=== PATIENT | female | born 1945 | race Caucasian/White ===

== ENCOUNTER 2016-06-24 02:08 | Emergency (ER) | payer MEDICARE, BC ==
--- NOTE | 2016-06-26 13:47 | ER ---
DATE SEEN: 06/24/2016 TIME SEEN: The patient was seen at 0237 hours. HISTORY OF PRESENT ILLNESS: This , nonsmoking, overweight woman with diabetes, atrial fibrillation, congestive heart failure, cardiomegaly, CABG, four vessel bypass, obesity, malignant hypertension, and restless legs syndrome, depression and anticoagulation for atrial fibrillation, presents 3 days post extraction #3 and #5 teeth, on 06/21/2016. She became worried this evening because she could not get the sites of dental extraction to stop bleeding. She had put gauze in the area, but she forgot to place the gauze over the posterior #3 tooth extraction site and the bleeding persisted. Before I could see the patient, nurses placed a gauze in each of these areas, had her clamp down, and by the time I saw her, the bleeding had stopped. These sites demonstrate the proud flesh associated with the tooth extraction. The patient is taking pain medicine. OBJECTIVE: VITAL SIGNS: Blood pressure 153/84, heart rate 69, respirations 18, oxygen saturation 99% on room air, temperature is 35.8 degrees centigrade. GENERAL: She has mild ecchymosis in the right side of her face from transudation of blood within the tissue layers of the right buccal area. There is minimal induration and swelling of the right buccal area. She is an overweight, pleasant woman, who has a low- pitched voice, has this large roll of gauze over tooth #3 and tooth #5. Has a trace of blood staining other teeth in her right side of her mouth. The extraction sites are no longer bleeding. The gauze was removed, no further bleeding noted. There is a halitosis in her mouth. NECK: No cervical adenopathy. No bruits in the neck, but she has a soft systolic 1 to 2, left upper sternal border and left middle sternal border that radiates to the carotids, and is audible in the carotids. Quiet, soft systolic murmur of aortic stenosis. No heaves noted. LUNGS: Clear to auscultation without rales, rhonchi, or wheezes. ABDOMEN: No hepatosplenomegaly. ASSESSMENT: Bleeding tooth extraction sites, stopped with compression and gauze. The patient's bleeding is stabilized. Continue with her Coumadin. Continue with compression in the mouth using the gauze to diminish the bleeding. Follow up with the doctor as needed. Otherwise keep her appointment with the dental surgeon who removed her teeth. No antibiotics given to the patient. /[id number] SANDY/ERNST STEIN
== END 2016-06-24 02:58 | disposition home or self-care (01) ==
LOC: FB.ED 02:08
CPT/HCPCS: 99282

== ENCOUNTER 2016-11-21 09:30 | Emergency (ER) | payer MEDICARE, BC ==
[~2016-11-21 09:30] MED LIST: Ketorolac 30 MG/ML SDV IM ONE
[2016-11-21] MEDS ORDERED: Acetaminophen 500 MG Tab PO ONE (09:31)
--- NOTE | 2016-11-21 09:39 | EDM.PDOC ---
ED HPI GENERAL MEDICAL PROBLEM - General Chief Complaint: Back Pain or Injury Stated Complaint: FALL Time Seen by Provider: 11/21/16 09:30 Source of Information: Reports: Patient, EMS History Limitations: Reports: No Limitations - History of Present Illness INITIAL COMMENTS - FREE TEXT/NARRATIVE: 71 yo female bent over and got dizzy and fell injuring her R side of her jaw and her tailbone. Transport via EMS. Vitals stable en route. No LOC. No self tx. 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 (see below) (none) - Related Data Allergies Allergy/AdvReac Type Severity Reaction Status Date / Time amoxicillin Allergy Hives Verified 11/21/16 09:43 heparin Allergy Cardiac Verified 11/21/16 09:43 Arrest vancomycin Allergy Hives Verified 11/21/16 09:43 TAPE Allergy Rash Uncoded 11/21/16 09:43 Home Meds: Home Meds Calcium Carbonate 600 mg PO BID 09/30/14 [History] Cholecalciferol (Vitamin D3) [Vitamin D3] 1 tab PO DAILY 09/30/14 [History] Furosemide [Furosemide] 40 mg PO DAILY 09/30/14 [History] Gluc Cr/Chondro Cr A/Vit C/Mn [Glucosamine 1,500 Complex Cp] 1 cap PO BID [History] Metoprolol Succinate [Toprol Xl] 100 mg PO BID 09/30/14 [History] Primidone [Primidone] 50 mg PO BID 09/30/14 [History] Warfarin [Coumadin] 5 mg PO SUTUWETHSA 09/30/14 [History] atorvaSTATin [Lipitor] 40 mg PO BEDTIME 09/30/14 [History] buPROPion HCl [Wellbutrin SR] 150 mg PO DAILY 09/30/14 [History] Aspirin [Halfprin] 81 mg PO DAILY 12/18/14 [History] Glimepiride [Amaryl] 0.5 tab PO BID 12/18/14 [History] Nitroglycerin [Nitrostat] 0.4 mg SL ASDIRECTED 12/18/14 [History] Lisinopril [Zestril] 20 mg PO BID 01/21/16 [History] Melatonin 2 tab PO BEDTIME 01/21/16 [History] amLODIPine [Norvasc] 10 mg PO BEDTIME 01/21/16 [History] hydrALAZINE [Apresoline] 10 mg PO TID 01/21/16 [History] Acetaminophen/HYDROcodone [[place] 325-5 MG] 1 tab PO Q4H PRN #14 tab 11/21/16 [Rx ] Albuterol [Ventolin HFA] 2 puff INH Q4H PRN 11/21/16 [History] Fluticasone/Vilanterol [Breo Ellipta 200-25 Mcg INH] 1 inh INH DAILY 11/21/16 [ History] Insulin Detemir [Levemir Flextouch] 30 units SQ BID 11/21/16 [History] PARoxetine [Paxil] 20 mg PO BEDTIME 11/21/16 [History] Potassium Chloride 10 meq PO DAILY 11/21/16 [History] Warfarin Sodium [Jantoven] 7.5 mg PO MOFR 11/21/16 [History] Past Medical History HEENT History: Reports: Cataract Cardiovascular History: Reports: Afib, Bypass, Hypertension, SOB on Exertion Respiratory History: Reports: SOB Gastrointestinal History: Reports: Cholelithiasis 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 OB/BYN History: HYSTERECTOMY, LT MASTECTOMY Psychiatric History: Reports: Depression Endocrine/Metabolic History: Reports: Diabetes, Type II Oncologic (Cancer) History: Reports: Breast - Past Surgical History HEENT Surgical History: Reports: Cataract Surgery Cardiovascular Surgical History: Reports: Coronary Artery Bypass Social & Family History - Family History Family Medical History: Noncontributory - Tobacco Use Smoking Status *Q: Never Smoker - Caffeine Use Caffeine Use: Reports: Coffee - Recreational Drug Use Recreational Drug Use: No - Living Situation & Occupation Living situation: Reports: Occupation: Retired Review of Systems - Review of Systems Review Of Systems: See Below Constitutional: Reports: No Symptoms Eyes: Reports: No Symptoms Ears: Reports: No Symptoms Nose: Reports: No Symptoms Mouth/Throat: Reports: No Symptoms Respiratory: Reports: No Symptoms Cardiovascular: Reports: No Symptoms GI/Abdominal: Reports: No Symptoms Genitourinary: Reports: No Symptoms Musculoskeletal: Reports: Back Pain (coccyx), Other (R side of jaw) Skin: Reports: No Symptoms Neurological: Reports: Dizziness (now resolved) Psychiatric: Reports: No Symptoms ED EXAM, GENERAL - Physical Exam Exam: See Below Exam Limited By: No Limitations General Appearance: Alert, WD/WN, No Apparent Distress Eye Exam: Bilateral Eye: Normal Inspection, PERRL Ears: Normal External Exam, Normal Canal, Hearing Grossly Normal Ear Exam: Bilateral Ear: Auricle Normal, Canal Normal Nose: Normal Inspection, Normal Mucosa, No Blood Throat/Mouth: Normal Inspection, Normal Lips, Normal Teeth, Normal Oropharynx, Normal Voice, No Airway Compromise Head: Atraumatic, Normocephalic, Other (Able to fully open mouth and close. States teeth don't fit when mouth closed. ) Neck: Normal Inspection, Supple, Non-Tender Respiratory/Chest: No Respiratory Distress, Lungs Clear, Normal Breath Sounds, No Accessory Muscle Use Cardiovascular: Regular Rate, Rhythm, No Edema GI/Abdominal: Normal Bowel Sounds, Soft, Non-Tender, No Distention Back Exam: Normal Inspection, Other (coccyx tenderness without visible bruising) . No: CVA Tenderness (R), CVA Tenderness (L) Extremities: Normal Inspection, Normal Range of Motion Neurological: Alert, Oriented, CN II-XII Intact, Normal Cognition, No Motor/ Sensory Deficits Psychiatric: Normal Affect, Normal Mood Skin Exam: Warm, Dry, Intact, Normal Color, No Rash Lymphatic: No Adenopathy Course - Vital Signs Text/Narrative:: Toradol 30 mg IM, acetaminophen 1000 mg po mandible X-ray-neg coccyx X-ray-neg Last Recorded V/S: Last Vital Signs Temp 36.4 C 11/21/16 09:30 Pulse 59 L 11/21/16 09:30 Resp 19 11/21/16 09:30 BP 154/67 H 11/21/16 09:30 Pulse Ox 94 L 11/21/16 09:30 - Orders/Labs/Meds Orders: Active Orders 24 hr Category Date Time Status Mandible Comp Min 4V [CR] Stat Exams 11/21/16 09:31 Taken Sacrum Coccyx Min 2V [CR] Stat Exams 11/21/16 09:32 Taken Meds: Medications Discontinued Medications Generic Name Dose Route Start Last Admin Trade Name Freq PRN Reason Stop Dose Admin Acetaminophen 1,000 mg 11/21/16 09:31 11/21/16 09:49 Tylenol Extra Strength PO 11/21/16 09:32 1,000 mg ONETIME ONE Administration Ketorolac Tromethamine 30 mg 11/21/16 09:30 11/21/16 09:49 Toradol IM 11/21/16 09:31 30 mg ONETIME ONE Administration Departure - Departure Time of Disposition: 10:35 Disposition: Home, Self-Care 01 Condition: Fair Clinical Impression: Multiple contusions - Discharge Information Prescriptions: Acetaminophen/HYDROcodone [[place] 325-5 MG] 1 tab PO Q4H PRN #14 tab PRN Reason: Pain Referrals: Rebecca Chaidez NP [Primary Care Provider] - Forms: ED Department Discharge Additional Instructions: Take acetaminophen or [place] for pain relief. See your provider for recheck if not improving. - My Orders Last 24 Hours: My Active Orders 11/21/16 09:31 Mandible Comp Min 4V [CR] Stat 11/21/16 09:32 Sacrum Coccyx Min 2V [CR] Stat - Assessment/Plan Last 24 Hours: My Active Orders 11/21/16 09:31 Mandible Comp Min 4V [CR] Stat 11/21/16 09:32 Sacrum Coccyx Min 2V [CR] Stat
[2016-11-21] MEDS ORDERED: Meclizine 25 MG Tab PO ONE (10:50)
[2016-11-21 11:48] VITALS: BP 148/84
--- NOTE | 2016-11-22 08:31 | CR ---
INDICATION: Fall with injury. SACRUM AND COCCYX: Four views of the sacrum and coccyx were obtained and revealed sacrum and coccyx and sacroiliac joints to appear intact with minimal degenerative changes. No acute fracture or dislocation was suggested. [facility]
--- NOTE | 2016-11-22 08:32 | CR ---
INDICATION: Fall with injury. MANDIBLE COMPLETE: Five views of the mandible were obtained and revealed the mandible to appear intact with no definite fracture or dislocation. [facility]D
== END 2016-11-21 11:25 | disposition home or self-care (01) ==
LOC: FB.ED 09:30
DX: S00.83XA Contusion of other part of head, initial encounter (principal); S30.0XXA Contusion of lower back and pelvis, initial encounter; I10 Essential (primary) hypertension; E11.9 Type 2 diabetes mellitus without complications; F32.9 Major depressive disorder, single episode, unspecified; I48.91 Unspecified atrial fibrillation; Z88.1 Allergy status to other antibiotic agents; Z88.8 Allergy status to other drugs, medicaments and biological substances; Z79.01 Long term (current) use of anticoagulants; Z79.82 Long term (current) use of aspirin; Z79.4 Long term (current) use of insulin; Z79.899 Other long term (current) drug therapy; Z95.1 Presence of aortocoronary bypass graft; Z90.710 Acquired absence of both cervix and uterus; Z98.49 Cataract extraction status, unspecified eye; W19.XXXA Unspecified fall, initial encounter
CPT/HCPCS: 70110; 72220; 96372; 99283; A9270; J1885

== ENCOUNTER 2017-02-12 12:01 | Emergency (ER) | payer MEDICARE, BC ==
--- NOTE | 2017-02-12 14:56 | EDM.PDOC ---
ED HPI GENERAL MEDICAL PROBLEM - General Chief Complaint: Abdominal Pain Stated Complaint: SWELLING Time Seen by Provider: 02/12/17 12:01 Source of Information: Reports: Patient, Other (Van) History Limitations: Reports: Physical Impairment - History of Present Illness INITIAL COMMENTS - FREE TEXT/NARRATIVE: 72 years old w f with metabolic syndrome was transferred from the clinic the ed for a abdominal paracentesis. As the patient arrived here in the ed by van, she was complaining of severe abdominal pain, generalized, weakness. She is a poor historian and no family member was present. No F/C Temp was 36.2 BP 133/79 pulse 85. No nausea of vomiting. Onset: Unknown/Unsure Onset Date: 02/11/17 Onset Time: 07:00 Duration: Day(s):, Getting Worse Location: Reports: Abdomen, Generalized Quality: Reports: Dull, Pressure, Same as Previous Episode Severity: Moderate Improves with: Reports: Rest Worsens with: Reports: Movement Context: Reports: Other (metabolic syndrome) Associated Symptoms: Reports: Weakness abdoemn Pain Score (Numeric/FACES): 6 - Related Data Allergies Allergy/AdvReac Type Severity Reaction Status Date / Time amoxicillin Allergy Hives Verified 02/12/17 16:48 heparin Allergy Cardiac Verified 02/12/17 16:48 Arrest vancomycin Allergy Hives Verified 02/12/17 16:48 TAPE Allergy Rash Uncoded 02/12/17 16:48 Home Meds: Home Meds . 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 OB/BYN History: HYSTERECTOMY, LT MASTECTOMY Psychiatric History: Reports: Depression Endocrine/Metabolic History: Reports: Diabetes, Type II Oncologic (Cancer) History: Reports: Breast - Past Surgical History HEENT Surgical History: Reports: Cataract Surgery Cardiovascular Surgical History: Reports: Coronary Artery Bypass Female Surgical History: Reports: Hysterectomy, Mastectomy Musculoskeletal Surgical History: Reports: Other (See Below) Other Musculoskeletal Surgeries/Procedures:: LT ARM FRACTURE, injury to tailbone , "tailbone crooked" Social & Family History - Family History Family Medical History: Noncontributory - Tobacco Use Smoking Status *Q: Never Smoker - Caffeine Use Caffeine Use: Reports: Coffee - Recreational Drug Use Recreational Drug Use: No - Living Situation & Occupation Living situation: Reports: Occupation: Retired ED ROS GENERAL - Review of Systems Review Of Systems: Unable To Obtain ED EXAM, GI/ABD - Physical Exam Exam: See Below Exam Limited By: Physical Impairment General Appearance: Alert, WD/WN, Obese Eyes: Bilateral: Normal Appearance Ears: Normal External Exam Nose: Normal Inspection Throat/Mouth: Normal Inspection Head: Atraumatic, Normocephalic Neck: Normal Inspection, Supple Respiratory/Chest: Lungs Clear, Chest Non-Tender, Decreased Breath Sounds (poor insp effort) Cardiovascular: Regular Rate, Rhythm GI/Abdominal Exam: Normal Bowel Sounds, Distended, Tender (Female) Exam: Deferred Rectal (Female) Exam: Deferred EKG INTERPRETATION EKG Date: 02/12/17 Time: 15:40 Rhythm: NSR Rate (Beats/Min): 91 [place]: Normal P-Wave: Present QRS: Normal ST-T: Normal QT: Prolonged Comparison: NA - No Prior EKG EKG Interpretation Comments: (peaked t waves ?) Course - Vital Signs Text/Narrative:: 72 years old w f with metabolic syndrome was transferred from the clinic the ed for a abdominal paracentesis. As the patient arrived here in the ed by van, she was complaining of severe abdominal pain, generalized, weakness. She is a poor historian and no family member was present. No F/C Temp was 36.2 BP 133/79 pulse 85. No nausea of vomiting. PE: Morbid obese WF, pale, in no acute distress. Distend abdomen, tender, dec. BS, weak. unable to make it out of the wheel chair. Labs: WBC 13.9 HGB 11.9 INR 1.30 (not on Coumadin) Na 126 K 6.0 BUN 95 Cr 2.5 VBG pH 7.3 pCO2 45.6 pO2 15 Biocarb 23 BE -4 GFR 19 BNP 59349 DB 0.3 Alkphos 256 Imaging: CT abd/pelvisL severe ascites, worse then in the past. ECG: NS with prolinged QTc, peaked T waves Impression: Hyperkalemia, abdominal/pelvic ascites, Renal insufficiency, Metabolic syndrome, morbid obesity. Hyponatremia, Hyperkalemia 2.50 pm Consultation: Dr. Quintero, Surgeon: Paracentesis (pending lab results ) Tx: Ca Cl, Duoneb, D50/insulin, Kayexalate 3.12pm Dr. Angeles, [facility]: Transfere to [facility] 3.17 pm Consultation: Dr Hansen, Hospitalist [place]: accepted the pt for admission Reexam: Stable on transfer to [place] BP 116/86 O2 sat 100% HR 86 Plan: Transfere to ICU [facility] Last Recorded V/S: Last Vital Signs Temp 36.2 C 02/12/17 12:05 Pulse 90 02/12/17 15:45 Resp 24 H 02/12/17 15:45 BP 125/68 02/12/17 15:45 Pulse Ox 100 02/12/17 15:45 - Orders/Labs/Meds Orders: Active Orders 24 hr Category Date Time Status RT Aerosol Therapy [RC] ASDIRECTED Care 02/12/17 14:59 Active EKG 12 Lead [EK] Routine Ther 02/12/17 15:02 Ordered Labs: Laboratory Tests 02/12/17 02/12/17 02/12/17 Range/Units 12:20 12:20 12:20 WBC 14.0 H (4.5-12.0) X10-3/uL Corrected WBC 13.9 H (4.5-12.0) X10(3) RBC 4.69 (3.23-5.20) x10(6)uL Hgb 11.9 (11.5-15.5) g/dL Hct 37.2 (30.0-51.3) % MCV 79.4 L (80-96) fL MCH 25.3 L (27.7-33.6) pg MCHC 31.9 L (32.2-35.4) g/dL RDW 17.5 H (11.5-15.5) % Plt Count 186 (125-369) X10(3)uL MPV 10.2 (7.4-10.4) fL Add Manual Diff Yes Neutrophils % (Manual) 82 (46-82) % Lymphocytes % (Manual) 8 L (13-37) % Monocytes % (Manual) 10 (4-12) % Nucleated RBCs 1 H (0-0) /100WBC Giant Platelets Moderate Anisocytosis Moderate H PT 13.2 H (8.7-11.1) INR 1.30 H (0.89-1.13) VBG pH (7.32-7.42) VBG pCO2 VBG pO2 VBG HCO3 mmol/L VBG O2 Saturation VBG Base Excess O2 Delivery Device Sodium 126 L D (135-145) mmol/L Potassium 6.0 H D (3.5-5.3) mmol/L Chloride 97 L D (100-110) mmol/L Carbon Dioxide 19 L (23-29) mmol/L BUN 95 H D (8-23) mg/dL Creatinine 2.5 H* (0.6-1.3) mg/dL Est Cr Clr Drug Dosing TNP Estimated GFR (MDRD) 19 L (>60) BUN/Creatinine Ratio 38.0 H (9-20) Glucose 316 H D (80-116) mg/dL Calcium 8.6 (8.6-10.2) mg/dL Total Bilirubin 0.6 (0.1-1.3) mg/dL Direct Bilirubin 0.3 H (0.1-0.2) mg/dL AST 21 D (5-27) IU/L ALT 23 D (14-26) IU/L Alkaline Phosphatase 276 H (56-112) IU/L NT-Pro-B Natriuret Pep (5-125) pg/mL Total Protein 6.5 (6.0-8.0) g/dL Albumin 3.2 (3.2-4.6) g/dL Amylase 66 (28-100) U/L Urine Color (YELLOW) Urine Appearance (CLEAR) Urine pH (5.0-6.5) Ur Specific [place] (1.010-1.025) Urine Protein (NEGATIVE) mg/dL Urine Glucose (UA) (NEGATIVE) mg/dL Urine Ketones (NEGATIVE) mg/dL Urine Occult Blood (NEGATIVE) Urine Nitrite (NEGATIVE) Urine Bilirubin (NEGATIVE) Urine Urobilinogen (NEGATIVE) mg/dL Ur Leukocyte Esterase (NEGATIVE) Urine RBC (0) Urine WBC (0) Ur Squamous Epith Cells (NS,R,O) Urine Bacteria (NS) Hyaline Casts (NS) 02/12/17 02/12/17 02/12/17 Range/Units 12:20 13:03 16:00 WBC (4.5-12.0) X10-3/uL Corrected WBC (4.5-12.0) X10(3) RBC (3.23-5.20) x10(6)uL Hgb (11.5-15.5) g/dL Hct (30.0-51.3) % MCV (80-96) fL MCH (27.7-33.6) pg MCHC (32.2-35.4) g/dL RDW (11.5-15.5) % Plt Count (125-369) X10(3)uL MPV (7.4-10.4) fL Add Manual Diff Neutrophils % (Manual) (46-82) % Lymphocytes % (Manual) (13-37) % Monocytes % (Manual) (4-12) % Nucleated RBCs (0-0) /100WBC Giant Platelets Anisocytosis PT (8.7-11.1) INR (0.89-1.13) VBG pH 7.305 L (7.32-7.42) VBG pCO2 45.6 VBG pO2 15 VBG HCO3 23 mmol/L VBG O2 Saturation 16 VBG Base Excess -4.0 O2 Delivery Device Room air Sodium (135-145) mmol/L Potassium (3.5-5.3) mmol/L Chloride (100-110) mmol/L Carbon Dioxide (23-29) mmol/L BUN (8-23) mg/dL Creatinine (0.6-1.3) mg/dL Est Cr Clr Drug Dosing Estimated GFR (MDRD) (>60) BUN/Creatinine Ratio (9-20) Glucose (80-116) mg/dL Calcium (8.6-10.2) mg/dL Total Bilirubin (0.1-1.3) mg/dL Direct Bilirubin (0.1-0.2) mg/dL AST (5-27) IU/L ALT (14-26) IU/L Alkaline Phosphatase (56-112) IU/L NT-Pro-B Natriuret Pep 64360 H (5-125) pg/mL Total Protein (6.0-8.0) g/dL Albumin (3.2-4.6) g/dL Amylase (28-100) U/L Urine Color Yellow (YELLOW) Urine Appearance Clear (CLEAR) Urine pH 5.0 (5.0-6.5) Ur Specific [place] 1.020 (1.010-1.025) Urine Protein Negative (NEGATIVE) mg/dL Urine Glucose (UA) Normal (NEGATIVE) mg/dL Urine Ketones Negative (NEGATIVE) mg/dL Urine Occult Blood Negative (NEGATIVE) Urine Nitrite Negative (NEGATIVE) Urine Bilirubin Negative (NEGATIVE) Urine Urobilinogen Normal (NEGATIVE) mg/dL Ur Leukocyte Esterase Negative (NEGATIVE) Urine RBC 0-5 (0) Urine WBC 0-5 (0) Ur Squamous Epith Cells Occasional (NS,R,O) Urine Bacteria Rare H (NS) Hyaline Casts Few H (NS) Meds: Medications Discontinued Medications Generic Name Dose Route Start Last Admin Trade Name Freq PRN Reason Stop Dose Admin Albuterol 2.5 mg 02/12/17 14:58 02/12/17 15:39 Proventil Neb Soln NEB 2.5 mg Q2H PRN Administration Hyperkalemia Calcium Chloride 1 gm 02/12/17 14:58 02/12/17 15:15 Calcium Chloride 10% IV 02/12/17 14:59 1 gm ONETIME ONE Administration Dextrose/Water 50 ml 02/12/17 14:58 02/12/17 15:15 Dextrose 50% In Water IVPUSH 02/12/17 14:59 50 ml ONETIME ONE Administration Insulin Human Regular 10 unit 02/12/17 14:58 02/12/17 15:16 Humulin R IVPUSH 02/12/17 14:59 10 units ONETIME ONE Administration Sodium Bicarbonate 50 meq 02/12/17 14:58 02/12/17 15:12 Sodium Bicarbonate 8.4% IVPUSH 02/12/17 14:59 50 meq ONETIME ONE Administration Sodium Polystyrene Sulfonate 15 gm 02/12/17 14:58 02/12/17 15:15 Kayexalate PO 02/12/17 14:59 15 gm ONETIME ONE Administration Departure - Departure Time of Disposition: 15:56 Disposition: DC/Tfer to Critical Access 66 Condition: Fair, Poor Clinical Impression: Metabolic syndrome, Hyperkalemia, Renal insufficiency, Anasarca associated with disorder of kidney CHF (congestive heart failure) Qualifiers: Congestive heart failure type: systolic Congestive heart failure chronicity: acute on chronic Qualified Code(s): I50.23 - Acute on chronic systolic ( congestive) heart failure - Discharge Information Referrals: Ketan Almanzar MD [Primary Care Provider] - Forms: ED Department Discharge - My Orders Last 24 Hours: My Active Orders 02/12/17 14:59 RT Aerosol Therapy [RC] ASDIRECTED 02/12/17 15:02 EKG 12 Lead [EK] Routine - Assessment/Plan Last 24 Hours: My Active Orders 02/12/17 14:59 RT Aerosol Therapy [RC] ASDIRECTED 02/12/17 15:02 EKG 12 Lead [EK] Routine
[2017-02-12] MEDS ORDERED: Calcium Chloride 10% 1 GM/10 ML Syringe IV ONE (14:58)
[2017-02-12] MEDS ORDERED: Sodium Bicarbonate 8.4% 50 MEQ/50 ML SDV IVPUSH ONE (14:58)
[2017-02-12] MEDS ORDERED: 50% Dextrose in Water 50 ML Syringe IVPUSH ONE (14:58)
[2017-02-12] MEDS ORDERED: Insulin Regular, Human 100 Units/ML 3 ML Vial IVPUSH ONE (14:58)
[2017-02-12] MEDS ORDERED: Sodium Polystyrene Sulfonate 15 GM/60 ML Susp 60 ML Bot PO ONE (14:58)
[2017-02-12] MEDS ORDERED: Albuterol 0.083% 2.5 MG/3 ML Neb Soln NEB PRN (14:58)
--- NOTE | 2017-02-12 15:50 | CT ---
INDICATION: Generalized abdominal pain. CT ABDOMEN AND PELVIS WITHOUT CONTRAST: Spiral 1.25-mm axial sections were obtained through the abdomen and pelvis without IV contrast and with oral contrast, with sagittal and coronal reconstructions, 02/12/2017, and were compared with 11/28/2016. Total Exam DLP = 2408.75 mGy-cm. A definite active infiltrate or effusion was not identified. Some probable minimal fibrotic change is seen at the left lung base medially. Massive abdominal ascites is noted, significantly increased in severity compared with the previous examination. Bilateral adrenal adenomas are suggested, as previously, larger on the left. No gross liver lesion was identified. However, the appearance of increase is probably on the basis of surrounding ascites. There is also evidence of extensive fluid in the interstitium of the subcutaneous tissues, suggesting anasarca. Thickening of the wall of the urinary bladder is noted, which may be on the basis of cystitis, but should be correlated clinically. The uterus does not appear to be present, suggesting previous resection. Arterial calcifications are noted. Periaortic lymphadenopathy - retroperitoneal lymphadenopathy is again noted. Caudal to the pancreatic head, the presence of a large mass is noted, extending to the centrally located abdominal mass mentioned above and appearing similar in size to the previous examination. There also appears to be asymmetry of the retroperitoneal musculature - iliopsoas is markedly more prominent on the right than left, raising question of previous denervation on the left. The possibility of retroperitoneal lymphadenopathy in that area is difficult to exclude without IV contrast. IMPRESSION: 1. Much more extensive abdominal and pelvic ascites than was present on the previous study of 11/28/2016, with a new finding of fairly severe anasarca suggested. 2. Continued presence of retroperitoneal lymphadenopathy and large mass in the central abdomen extending superiorly into the retroperitoneum just caudal to the head of the pancreas. Etiology likely lymphoma, but should be correlated clinically. 3. Renal cortical scarring with thinning overall of the renal cortices. 4. ASD with generalized arterial calcifications, and ASHD with coronary artery calcifications and enlargement of the heart. 5. Thickening of the urinary bladder wall is suggested, which may be on the basis of cystitis. 6. Post hysterectomy. 7. Post cholecystectomy. CT PELVIS: Examination of the pelvis by CT, as noted above, revealed asymmetrical iliopsoas areas, right much more prominent than left. This may be on the basis of denervation of the left iliopsoas area and atrophy. Cannot exclude retroperitoneal lymphadenopathy on the right, however, without IV contrast. Massive pelvic ascites is noted. The uterus is absent, compatible with history of its removal. Thickening of the urinary bladder wall is noted, which could be on the basis of cystitis and should be correlated clinically. Interstitial edema is noted in the subcutaneous tissue, suggesting anasarca. Report was called to Dr. Gibbs at 1440 hours, 02/12/2017. MTDD
[2017-02-12 16:58] VITALS: BP 125/68
== END 2017-02-12 16:05 | disposition critical access hospital (66) ==
LOC: FB.ED 12:01
DX: E87.5 Hyperkalemia (principal); E87.1 Hypo-osmolality and hyponatremia; E88.81 Metabolic syndrome and other insulin resistance; E66.01 Morbid (severe) obesity due to excess calories; N28.9 Disorder of kidney and ureter, unspecified; I50.23 Acute on chronic systolic (congestive) heart failure; E11.9 Type 2 diabetes mellitus without complications; R18.8 Other ascites; Z88.1 Allergy status to other antibiotic agents; Z88.8 Allergy status to other drugs, medicaments and biological substances
CPT/HCPCS: 36415; 74176; 80048; 80076; 81001; 82150; 82803; 83880; 85025; 85610; 93005; 94640; 96374; 96375; 99284; A9270; 99285; J1815; J3490

== ENCOUNTER 2017-02-25 20:21 | Emergency (ER) | payer MEDICARE, BC ==
[2017-02-26 00:11] VITALS: BP 104/64
--- NOTE | 2017-02-26 00:33 | EDM.PDOC ---
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, nonoperable, dx 1m ago she has had worsening ascites and anasarca and needs to be on hospice altho she does not seem to understand fully that her condition is terminal has a intraperitoneal drain that is attached to suction periodically, however has been having increasing wt, increasing abd girth, BUN/creat have continued on an upward trend (>100/2.8), there was no evidence of ureteral obstruction on CT 10d ago no evidence of infection today, will most likely need to be d/c'ed to inpatient hospital d/w Dr Dockery, hospitalist at [facility], who accepted pt in transfer, pt reluctantly agrees as does son - Related Data Allergies Allergy/AdvReac Type Severity Reaction Status Date / Time amoxicillin Allergy Hives Verified 02/12/17 16:48 heparin Allergy Cardiac Verified 02/12/17 16:48 Arrest vancomycin Allergy Hives Verified 02/12/17 16:48 TAPE Allergy Rash Uncoded 02/12/17 16:48 Home Meds: Home Meds . 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: Reports: Other OB/BYN History: HYSTERECTOMY, LT MASTECTOMY Psychiatric History: Reports: Depression Endocrine/Metabolic History: Reports: Diabetes, Type II Oncologic (Cancer) History: Reports: Breast - Past Surgical History HEENT Surgical History: Reports: Cataract Surgery Cardiovascular Surgical History: Reports: Coronary Artery Bypass Female Surgical History: Reports: Hysterectomy, Mastectomy Musculoskeletal Surgical History: Reports: Other (See Below) Other Musculoskeletal Surgeries/Procedures:: LT ARM FRACTURE, injury to tailbone , "tailbone crooked" Social & Family History - Family History Family Medical History: Noncontributory - Tobacco Use Smoking Status *Q: Never Smoker Used Tobacco, but Quit: Yes Month Tobacco Last Used: u - Caffeine Use Caffeine Use: Reports: Coffee - Recreational Drug Use Recreational Drug Use: No - Living Situation & Occupation Living situation: Reports: Occupation: Retired ED ROS GENERAL - Review of Systems Review Of Systems: See Below Constitutional: Reports: Weakness, Decreased Appetite. Denies: Fever, Chills HEENT: Reports: No Symptoms Respiratory: Reports: No Symptoms Cardiovascular: Reports: No Symptoms Endocrine: Reports: No Symptoms GI/Abdominal: Reports: Abdominal Pain. Denies: Constipation, Diarrhea : Reports: No Symptoms Musculoskeletal: Reports: No Symptoms Skin: Reports: No Symptoms Neurological: Reports: No Symptoms Psychiatric: Reports: No Symptoms Hematologic/Lymphatic: Reports: No Symptoms Immunologic: Reports: No Symptoms ED EXAM, GENERAL - Physical Exam Exam: See Below Exam Limited By: No Limitations General Appearance: Alert, WD/WN, No Apparent Distress Nose: Normal Inspection Throat/Mouth: Normal Inspection, Normal Voice, No Airway Compromise Head: Atraumatic Neck: Normal Inspection, Supple, Non-Tender Respiratory/Chest: No Respiratory Distress, Lungs Clear, Normal Breath Sounds, No Accessory Muscle Use, Chest Non-Tender, Other (no cough, no dyspnea) Cardiovascular: Regular Rate, Rhythm, No Edema, No JVD, No Rub, Other (1/6 FAVIO at LSB, precordium quiet) GI/Abdominal: Other (very protuberant, dull throughout, BS x 4, no guard/rebound , NT, dressing RLQ with drain palpable underneath drsg) Back Exam: Other (1+ presacral edema) Extremities: Other (2-3+ edema to thighs b/l) Neurological: Alert, Oriented, CN II-XII Intact, Normal Cognition, No Motor/ Sensory Deficits Psychiatric: Normal Affect Skin Exam: Warm, Dry, Intact, Normal Color, No Rash Lymphatic: No Adenopathy Course - Vital Signs Last Recorded V/S: Last Vital Signs Temp 35.9 C 02/26/17 00:05 Pulse 89 02/26/17 00:05 Resp 16 02/26/17 00:05 BP 104/64 02/26/17 00:05 Pulse Ox 98 02/26/17 00:05 - Orders/Labs/Meds Orders: Active Orders 24 hr Category Date Time Status EKG Documentation Completion [RC] ASDIRECTED Care 02/25/17 21:28 Active UA W/MICROSCOPIC [URIN] Stat Lab 02/25/17 21:27 Uncollected EKG 12 Lead [EK] Routine Ther 02/25/17 21:27 Ordered Labs: Laboratory Tests 02/25/17 02/25/17 02/25/17 Range/Units 21:50 21:50 21:50 WBC 15.8 H (4.5-12.0) X10-3/uL RBC 4.64 (3.23-5.20) x10(6)uL Hgb 11.7 (11.5-15.5) g/dL Hct 36.5 (30.0-51.3) % MCV 78.6 L (80-96) fL MCH 25.1 L (27.7-33.6) pg MCHC 32.0 L (32.2-35.4) g/dL RDW 16.7 H (11.5-15.5) % Plt Count 238 (125-369) X10(3)uL MPV 10.4 (7.4-10.4) fL Add Manual Diff Yes Neutrophils % (Manual) 74 (46-82) % Band Neutrophils % 5 (0-6) % Lymphocytes % (Manual) 12 L (13-37) % Monocytes % (Manual) 9 (4-12) % Giant Platelets Moderate Anisocytosis Few Sodium 127 L (135-145) mmol/L Potassium 6.0 H (3.5-5.3) mmol/L Chloride 96 L (100-110) mmol/L Carbon Dioxide 18 L (23-29) mmol/L BUN > 100 H (8-23) mg/dL Creatinine 2.8 H* (0.6-1.3) mg/dL Est Cr Clr Drug Dosing TNP Estimated GFR (MDRD) 17 L (>60) BUN/Creatinine Ratio 35.7 H (9-20) Glucose 142 H D (80-116) mg/dL Lactic Acid (0.5-2.2) mmol/L Calcium 8.7 (8.6-10.2) mg/dL Total Bilirubin 0.7 (0.1-1.3) mg/dL AST 31 H D (5-27) IU/L ALT 28 H D (14-26) IU/L Alkaline Phosphatase 249 H (56-112) IU/L Troponin I 0.03 (0.02-0.06) NG/ML NT-Pro-B Natriuret Pep 62455 H (5-125) pg/mL Total Protein 6.1 (6.0-8.0) g/dL Albumin 2.9 L (3.2-4.6) g/dL Globulin 3.2 g/dL Albumin/Globulin Ratio 0.9 //17 Range/Units 21:50 WBC (4.5-12.0) X10-3/uL RBC (3.23-5.20) x10(6)uL Hgb (11.5-15.5) g/dL Hct (30.0-51.3) % MCV (80-96) fL MCH (27.7-33.6) pg MCHC (32.2-35.4) g/dL RDW (11.5-15.5) % Plt Count (125-369) X10(3)uL MPV (7.4-10.4) fL Add Manual Diff Neutrophils % (Manual) (46-82) % Band Neutrophils % (0-6) % Lymphocytes % (Manual) (13-37) % Monocytes % (Manual) (4-12) % Giant Platelets Anisocytosis Sodium (135-145) mmol/L Potassium (3.5-5.3) mmol/L Chloride (100-110) mmol/L Carbon Dioxide (23-29) mmol/L BUN (8-23) mg/dL Creatinine (0.6-1.3) mg/dL Est Cr Clr Drug Dosing Estimated GFR (MDRD) (>60) BUN/Creatinine Ratio (9-20) Glucose (80-116) mg/dL Lactic Acid 2.2 (0.5-2.2) mmol/L Calcium (8.6-10.2) mg/dL Total Bilirubin (0.1-1.3) mg/dL AST (5-27) IU/L ALT (14-26) IU/L Alkaline Phosphatase (56-112) IU/L Troponin I (0.02-0.06) NG/ML NT-Pro-B Natriuret Pep (5-125) pg/mL Total Protein (6.0-8.0) g/dL Albumin (3.2-4.6) g/dL Globulin g/dL Albumin/Globulin Ratio Departure - Departure Time of Disposition: 00:36 Disposition: DC/Tfer to Other 70 Condition: Fair Clinical Impression: Ascites, Anasarca, Abdominal malignancy, Acute on chronic renal failure, Weakness, Fall, Unable to stand up, Contusion of face - Discharge Information Referrals: Ketan Almanzar MD [Primary Care Provider] - - My Orders Last 24 Hours: My Active Orders 02/25/17 21:27 UA W/MICROSCOPIC [URIN] Stat EKG 12 Lead [EK] Routine 02/25/17 21:28 EKG Documentation Completion [RC] ASDIRECTED - Assessment/Plan Last 24 Hours: My Active Orders 02/25/17 21:27 UA W/MICROSCOPIC [URIN] Stat EKG 12 Lead [EK] Routine 02/25/17 21:28 EKG Documentation Completion [RC] ASDIRECTED
== END 2017-02-26 00:20 | disposition other institution (70) ==
LOC: FB.ED 20:21
DX: N17.9 Acute kidney failure, unspecified (principal); I12.9 Hypertensive chronic kidney disease with stage 1 through stage 4 chronic kidney disease, or unspecified chronic kidney disease; E11.22 Type 2 diabetes mellitus with diabetic chronic kidney disease; N18.9 Chronic kidney disease, unspecified; C76.2 Malignant neoplasm of abdomen; R18.8 Other ascites; S00.83XA Contusion of other part of head, initial encounter; R41.0 Disorientation, unspecified; Z87.891 Personal history of nicotine dependence; Z91.048 Other nonmedicinal substance allergy status; Z88.1 Allergy status to other antibiotic agents; Z88.8 Allergy status to other drugs, medicaments and biological substances; W19.XXXA Unspecified fall, initial encounter
CPT/HCPCS: 36415; 80053; 83605; 83880; 84484; 85025; 93005; 99284; 99285